=== PATIENT | female | born 1965 | race Caucasian/White ===

== ENCOUNTER 2016-08-24 11:02 | Outpatient (CLI) | payer MEDICAID | END 2016-08-24 11:03 | disposition home or self-care (01) | DX: L40.9 Psoriasis, unspecified (principal); I10 Essential (primary) hypertension; E66.01 Morbid (severe) obesity due to excess calories ==

== ENCOUNTER 2016-10-20 12:04 | Outpatient (CLI) | payer MEDICAID ==
--- NOTE | 2016-10-21 07:34 | XRAY Report ---
AP PELVIS: 10/20/2016 CLINICAL HISTORY: Osteoarthritis. FINDINGS: SI joints are normal. A small spur is seen emanating from the lateral aspect of the left acetabulum. Mild narrowing of the lateral aspect of the left hip joint. Right hip demonstrates prominent spur extending from the lateral aspect of the right acetabulum. A m oderate degree of narrowing of the lateral aspect of the right hip joint. There is calcification or ossification adjacent to the superolateral aspect of the right greater trochanter. This may represen t calcification or ossification at the tendinous insertion site. A similar finding is noted along th e left greater trochanter. Secondary possibility for this finding is a bursitis or calcific tendinit is. IMPRESSION: 1. MINIMAL OSTEOARTHRITIS OF THE LEFT HIP PRIMARILY IN LATERAL SUPERIOR ASPECT OF THE HIP. 2. OSTEOARTHRITIS IS NOTED IN THE RIGHT HIP PRIMARILY IN THE LATERAL SUPERIOR ASPECT OF THE HIP. 3. OSSIFICATIONS ARE DEVELOPING AT THE TENDINOUS INSERTION SITES ALONG EACH GREATER TROCHANTER. THI S MOST LIKELY IS A NORMAL DEVELOPMENTAL VARIATION. JOB #: [id number] EXT JOB #:[id number]
--- NOTE | 2016-10-21 08:01 | XRAY Report ---
THREE-VIEW LUMBAR SPINE: 10/20/2016 CLINICAL HISTORY: Osteoarthritis. FINDINGS: Five non-rib bearing lumbar-type vertebrae are noted. Spurring is detected in the lumbar spine with bridging osteophytes at L2-3 and L3-4. Minimal posterior disk space narrowing is noted at L2-3 and L4-5. Minimal spondylolisthesis is noted at L4-5 amounting to 2 mm. This probably is a re sult of osteoarthritis of the facet joints. Mild posterior disk space narrowing is seen at L5-S1. SI joints show mild narrowing. IMPRESSION: MILD OSTEOARTHRITIS OF THE LUMBAR SPINE. JOB #: [id number] EXT JOB #:[id number]
== END 2016-10-20 12:05 | disposition home or self-care (01) ==
LOC: DI.N 12:04
PROVIDERS: ATTEND Physician Assistant
DX: M16.0 Bilateral primary osteoarthritis of hip (principal); M47.896 Other spondylosis, lumbar region; M43.16 Spondylolisthesis, lumbar region
CPT/HCPCS: 72100; 72170

== ENCOUNTER 2016-12-05 10:11 | Outpatient (CLI) | payer MEDICAID ==
--- NOTE | 2016-12-07 08:05 | Mammography Report ---
DIGITAL SCREENING MAMMOGRAM: 12/05/2016 CLINICAL INDICATION: A 51-year-old for new baseline. TECHNIQUE: Routine CC and MLO projections were obtained of the breasts. FINDINGS: The breasts demonstrate scattered fibroglandular densities bilaterally. No suspicious mas ses, clustered microcalcifications, or regions of architectural distortion are identified. IMPRESSION: NEGATIVE EXAMINATION. RECOMMENDATION: Routine annual screening unless otherwise clinically indicated. BIRADS CATEGORY 1 - NEGATIVE. STANDARD QUALIFYING STATEMENTS 1. This examination was reviewed with the aid of Computer-Aided Detection (CAD). 2. A negative or benign imaging report should not delay biopsy if clinically suspicious findings are present. Consider surgical consultation if warranted. More than 5% of cancers are not identified by i maging. 3. Dense breasts may obscure an underlying neoplasm. JOB #: [id number] EXT JOB #:[id number]
== END 2016-12-05 10:12 | disposition home or self-care (01) ==
LOC: DI.N 10:11
PROVIDERS: ATTEND Nurse Practitioner
DX: Z12.39 Encounter for other screening for malignant neoplasm of breast (principal)
CPT/HCPCS: 77067

== ENCOUNTER 2017-01-16 20:29 | Emergency (ER) | payer MEDICAID ==
--- NOTE | 2017-01-16 21:33 | XRAY Preliminary Report ---
Exam: XR Hand 3 View LT IMPRESSION: 1. No acute bony abnormality. 2. Osteoarthritis. [facility] SITE ID: [id number]
--- NOTE | 2017-01-16 21:36 | XRAY Report ---
EXAM: LEFT HAND RADIOGRAPHY EXAM DATE: 01/16/2017 09:09 PM. CLINICAL HISTORY: FALL. LEFT HAND PAIN/TENDERNESS. COMPARISON: None. TECHNIQUE: 3 views. FINDINGS: Bones: Normal. No fractures or bone lesions. Joints: Spurring of IP joints and first carpometacarpal joint. No subluxations. Soft Tissues: Normal. No soft tissue swelling. IMPRESSION: 1. No acute bony abnormality. 2. Osteoarthritis. [facility] Referring Provider Line: [phone] SITE ID: [id number]
--- NOTE | 2017-01-16 23:01 | ED Physician Documentation ---
PD HPI UPPER EXT INJURY - Stated complaint Stated Complaint: L HAND INJURY - Chief complaint Chief Complaint: General - History obtained from History obtained from: Patient - History of Present Illness Location: Left, Hand Type of injury: Fall (trip) Where injury occurred: Street Timing - onset: Today Timing - duration: Days (1) Timing - details: Gradual onset Pain level max: 6 Pain level now: 5 Improved by: Rest, Ice, Immobilization Worsened by: Moving, Palpating Associated symptoms: Swelling. No: Weakness, Numbness, Tingling, Discolored Contributing factors: No: Anticoagulated, Prior ortho surgery Similar symptoms before: Has not had sx before Recently seen: Not recently seen Review of Systems Musculoskeletal: denies: Neck pain, Back pain Neurologic: denies: Focal weakness, Numbness, Headache PD PAST MEDICAL HISTORY - Past Medical History Past Medical History: No Cardiovascular: None Respiratory: None Neuro: None Endocrine/Autoimmune: None GI: None MILK TESTER: None : None HEENT: None Psych: None Musculoskeletal: None Derm: None - Allergies Allergies/Adverse Reactions: Allergies Allergy/AdvReac Type Severity Reaction Status Date / Time No Known Drug Allergies Allergy Verified 01/16/17 20:44 - Social History Does the pt smoke?: No Smoking Status: Never smoker Does the pt drink ETOH?: No Does the pt have substance abuse?: No - Immunizations Immunizations are current?: Yes - POLST Patient has POLST: No PD ED PE NORMAL - Vitals Vital signs reviewed: Yes - General General: Alert and oriented X 3 - Derm Derm: Warm and dry - Extremities Extremities: Other (L hand - TTP with swelling over the 2nd and 3rd MCP. NVI. No deformity. Otherwise normal examination of the hand and wrist) - Neuro Neuro: Alert and oriented X 3 - Psych Psych: Normal mood, Normal affect Results - Vitals Vitals: Vital Signs - 24 hr 01/16/17 01/16/17 20:40 23:06 Temperature 36.7 C Heart Rate 83 82 Respiratory 17 17 Rate Blood Pressure 153/96 H 152/99 H O2 Saturation 99 98 Oxygen O2 Source Room air - Rads (name of study) L hand xray Radiology: Prelim report reviewed, EMP read contemporaneously, See rad report ( No acute bony abnormality. osteoarthritis) Procedures - Splint (location) L wrist/hand Splint applied by: Physician, Tech Type of splint: Fiberglass, Short arm, Volar cock up Other: Patient tolerated well, No complications, Neurovascular intact PD MEDICAL DECISION MAKING - ED course Complexity details: considered differential, d/w patient ED course: Patient is a 51-year-old female with a hand contusion/sprain. Placed in a volar splint for comfort. Has Motrin and Vicodin at home for pain. We will continue supportive care. No fractures on x-ray. Counseled regarding missed fractures secondary to acute swelling and may need repeat xrays if not improving. Patient counseled regarding signs and symptoms for which I believe and urgent re-evaluation would be necessary. Patient with good understanding of and agreement to plan and is comfortable going home at this time This document was made in part using voice recognition software. While efforts are made to proofread this document, sound alike and grammatical errors may occur. Departure - Departure Disposition: 01 Home, Self Care Clinical Impression: Hand contusion Qualifiers: Encounter type: initial encounter Laterality: left Qualified Code(s): S60.222A - Contusion of left hand, initial encounter Hand sprain Qualifiers: Encounter type: initial encounter Laterality: left Qualified Code(s): S63.92XA - Sprain of unspecified part of left wrist and hand, initial encounter Condition: Good Instructions: ED Sprain Hand Follow-Up: Glen Escobar PA-C [Primary Care Provider] - Comments: Wear the splint for the next 2-3 days, then remove it. Return if you worsen. Discharge Date/Time: 01/16/17 23:17
[2017-01-16 23:07] VITALS: BP 152/99
== END 2017-01-16 23:17 | disposition home or self-care (01) ==
LOC: ED 20:29
DX: S63.92XA Sprain of unspecified part of left wrist and hand, initial encounter (principal); S60.222A Contusion of left hand, initial encounter; W01.0XXA Fall on same level from slipping, tripping and stumbling without subsequent striking against object, initial encounter; Y92.488 Other paved roadways as the place of occurrence of the external cause
CPT/HCPCS: 29125; 99283

== ENCOUNTER 2017-08-29 09:28 | Outpatient (CLI) | payer MEDICAID ==
--- NOTE | 2017-08-29 12:30 | XRAY Report ---
LEFT HAND, THREE VIEWS: 08/29/2017 HISTORY: Left hand pain. COMPARISON: 01/16/2017. FINDINGS: Scattered degenerative changes of the interphalangeal joints of the fingers and thumb, most marked of the finger DIP joints and the thumb interphalangeal joint. Minor first metacarpocarpal degenerative change. No evidence of acute fracture, malalignment, soft tissue swelling, or radiopaque foreign body. IMPRESSION: DEGENERATIVE CHANGE LEFT HAND WITHOUT SUPERIMPOSED ACUTE FINDINGS, SIMILAR IN APPEARANCE TO 01/16/2017. TD: 08/29/2017 12:29 EDDIE
== END 2017-08-29 09:29 | disposition home or self-care (01) ==
LOC: DI.N 09:28
PROVIDERS: ATTEND Family Medicine
DX: M19.042 Primary osteoarthritis, left hand (principal)

== ENCOUNTER 2019-11-26 14:18 | Outpatient (CLI) | payer MEDICAID ==
--- NOTE | 2019-11-26 15:09 | XRAY Report ---
Reason: LEFT ELBOW PAIN Procedure Date: 11/26/2019 Accession Number: [id number] / [id number] Procedure: WCP - Elbow 2 View LT CPT Code: Final Report FULL RESULT: PROCEDURE: Elbow 2 View LT INDICATIONS: LEFT ELBOW PAIN TECHNIQUE: 2 views of the elbow were acquired. COMPARISON: None FINDINGS: There is ulnar humeral joint space narrowing with marginal ossific ptosis along with some subchondral sclerosis. No acute fracture or dislocation. No suspicious lytic or blastic osseous lesion. No elbow joint effusion. No soft tissue swelling. Calcification along the ulnar collateral ligament origin. IMPRESSION: Moderate osteoarthritis of the ulnohumeral joint. Calcification of the ulnar collateral ligament near the origin. Reviewed by: Osmany Damian MD on 11/26/2019 3:08 PM PDT Approved by: Osmany Damian MD on 11/26/2019 3:08 PM PDT Station ID: [id number]
== END 2019-11-26 23:59 | disposition home or self-care (01) ==
LOC: DI.WCP 14:18
PROVIDERS: ATTEND Family Medicine
DX: M19.022 Primary osteoarthritis, left elbow (principal); M24.222 Disorder of ligament, left elbow

== ENCOUNTER 2019-11-27 10:34 | Outpatient (CLI) | payer MEDICAID ==
--- NOTE | 2019-11-28 11:11 | Mammography Report ---
BILATERAL DIGITAL SCREENING MAMMOGRAM 3D/2D: 11/27/2019 Comparison is made to exam dated: 12/05/2016 mammogram - [facility]. There are sca ttered fibroglandular elements in both breasts. No significant masses, calcifications, or other findings are seen in either breast. There has been no significant interval change. IMPRESSION: NEGATIVE There is no mammographic evidence of malignancy. A 1 year screening mammogram is recommended. This exam was interpreted at Station ID: [id number]. NOTE: For mammograms, a report in lay terms will be sent to the patient. Approximately 15% of breast malignancies will not be visualized mammographically. In the management of a palpable breast mass, a negative mammogram must not discourage biopsy of a clinically suspicious lesion. Electronically Signed By: Shana osorio/lilliam:11/28/2019 09:26:56 ACR BI-RADS Category 1: Negative 3341F PARENCHYMAL PATTERN: (A) - The breast(s) demonstrate(s) scattered fibroglandular densities. BI-RADS CATEGORY: (1) - 1 RECOMMENDATION: (ANNUAL) - Recommend routine annual screening mammography. [id number] 1 year screening LATERALITY: (B)
== END 2019-11-27 10:35 | disposition home or self-care (01) ==
LOC: DI 10:34
PROVIDERS: ATTEND Nurse Practitioner Obstetrics & Gynecology
DX: Z12.31 Encounter for screening mammogram for malignant neoplasm of breast (principal)
CPT/HCPCS: 77063; 77067

== ENCOUNTER 2020-07-10 15:45 | Outpatient (CLI) | payer MEDICAID ==
[2020-07-10 22:46] LABS: TRICHOMONAS VAGINALIS DNA NEGATIVE (NEGATIVE)
== END 2020-07-10 23:59 | disposition home or self-care (01) ==
LOC: LAB.R 15:45
PROVIDERS: ATTEND Advanced Practice Midwife
DX: Z11.3 Encounter for screening for infections with a predominantly sexual mode of transmission (principal)
CPT/HCPCS: 87491; 87591; 87661

== ENCOUNTER 2020-07-14 21:31 | Emergency (ER) | payer MEDICAID ==
[2020-07-14] MEDS ORDERED: ASPIRIN CHEW 81 MG TABLET PO STA (21:49)
[2020-07-14 21:57] LABS: BASOPHILS # (AUTO) 0.1 10^3/uL (0.0-0.1); BASOPHILS % (AUTO) 0.8 %; EOSINOPHILS # (AUTO) 0.3 10^3/uL (0.0-0.7); EOSINOPHILS % (AUTO) 3.1 %; HGB - HEMOGLOBIN 15.1 g/dL (12.0-16.0); LYMPHOCYTES # (AUTO) 2.5 10^3/uL (1.5-3.5); LYMPHOCYTES % (AUTO) 30.8 %; MEAN CORPUSCULAR HEMOGLOBIN 28.7 pg (27.0-31.0); MEAN CORPUSCULAR HGB CONC 33.5 g/dL (32.0-36.0); MEAN CORPUSCULAR VOLUME 85.7 fL (81.0-99.0); MEAN PLATELET VOLUME 8.7 fL (7.9-10.8); MONOCYTES # (AUTO) 1.1 10^3/uL (0.0-1.0); MONOCYTES % (AUTO) 13.2 %; NEUTROPHILS # (AUTO) 4.3 10^3/uL (1.5-6.6); PLT - PLATELET COUNT 332 10^3/uL (130-450); RED BLOOD COUNT 5.26 10^6/uL (4.20-5.40); RED CELL DISTRIBUTION WIDTH 13.2 % (12.0-15.0); WHITE BLOOD COUNT 8.3 x10^3/uL (4.8-10.8)
[2020-07-14 22:10] LABS: ALBUMIN 4.5 g/dL (3.2-5.5); ALBUMIN/GLOBULIN RATIO 1.2 (1.0-2.2); BILIRUBIN,TOTAL 0.9 mg/dL (0.2-1.0); CALCIUM 9.7 mg/dL (8.5-10.3); CREATININE 0.6 mg/dL (0.4-1.0); TOTAL PROTEIN 8.3 g/dL (6.7-8.2)
--- NOTE | 2020-07-14 23:58 | ED Physician Documentation ---
PD HPI CHEST PAIN - Stated complaint Stated Complaint: CHEST PX - Chief complaint Chief Complaint: Cardiac - History obtained from History obtained from: Patient - History of Present Illness Timing - onset: Enter time (21:00) Timing - onset during: Light activity Timing - details: Abrupt onset Pain level now: 2 Quality: Pain Location: Other (left axilla) Radiation: Other (no radiation) Improved by: Nothing Worsened by: Other (no exacerbating factors) Associated symptoms: Diaphoresis Similar symptoms before: Has not had sx before Recently seen: Not recently seen - Additional information Additional information: at approximately 9 PM tonight while walking in [facility], patient had rapid onset of diaphoresis associated with left axillary pain. She denies h/o similar symptoms. She has no known CAD nor other cardiac problems. She says she had a normal stress test approximately 5-10 years ago. Her symptoms have resolved by the time of this evaluation Review of Systems Constitutional: reports: Sweats. denies: Fever, Chills, Myalgias Cardiac: reports: Chest pain / pressure (left axillary pain, resolved). denies: Palpitations, Pedal edema, Calf pain Respiratory: reports: Reviewed and negative GI: reports: Reviewed and negative Musculoskeletal: denies: Extremity swelling Neurologic: denies: Generalized weakness, Focal weakness, Numbness, Headache PD PAST MEDICAL HISTORY - Past Medical History Cardiovascular: None Respiratory: None Endocrine/Autoimmune: None GI: None SINK CUTTER: None : None HEENT: None Psych: None Musculoskeletal: None Derm: None - Present Medications Home Medications: Ambulatory Orders Medication Instructions Recorded Confirmed Sertraline HCl 100 mg PO DAILY 07/15/20 07/15/20 Trazodone HCl 100 mg PO HS 07/15/20 07/15/20 Venlafaxine ER [Effexor ER] 150 mg PO DAILY 07/15/20 07/15/20 - Allergies Allergies/Adverse Reactions: Allergies Allergy/AdvReac Type Severity Reaction Status Date / Time No Known Drug Allergies Allergy Verified 07/14/20 21:40 - Social History Does the pt smoke?: No Smoking Status: Never smoker Does the pt drink ETOH?: No Does the pt have substance abuse?: No - Immunizations Immunizations are current?: Yes - POLST Patient has POLST: No PD ED PE NORMAL - Vitals Vital signs reviewed: Yes - General General: Alert and oriented X 3, No acute distress, Well developed/nourished - Neck Neck: Supple, no meningeal sign - Cardiac Cardiac: RRR, No murmur, No gallop, No rub - Respiratory Respiratory: No respiratory distress, Clear bilaterally - Abdomen Abdomen: Soft, Non tender - Derm Derm: Normal color, Warm and dry - Extremities Extremities: No edema Results - Vitals Vitals: Oxygen O2 Source Room air - EKG (time done) No standard instances Rate: Rate (enter#) (94) Rhythm: NSR [place]: Normal Intervals: Normal OR QRS: Normal Ischemia: Normal ST segments - Labs Labs: Laboratory Tests 07/14/20 07/14/20 07/14/20 21:35 21:35 21:35 WBC 8.3 RBC 5.26 Hgb 15.1 Hct 45.1 MCV 85.7 MCH 28.7 MCHC 33.5 RDW 13.2 Plt Count 332 MPV 8.7 Neut # (Auto) 4.3 Lymph # (Auto) 2.5 [place] # (Auto) 1.1 H Eos # (Auto) 0.3 Baso # (Auto) 0.1 Absolute Nucleated RBC 0.00 Nucleated RBC % 0.0 Sodium 139 Potassium 3.8 Chloride 102 Carbon Dioxide 23 Anion Gap 14.0 H BUN 25 H Creatinine 0.6 Estimated GFR (MDRD) 104 Glucose 108 H Calcium 9.7 Total Bilirubin 0.9 AST 37 ALT 43 Alkaline Phosphatase 78 Troponin I High Sens 3.6 Total Protein 8.3 H Albumin 4.5 Globulin 3.8 Albumin/Globulin Ratio 1.2 Lipase 53 H - Rads (name of study) chest xray Radiology: Prelim report reviewed, See rad report PD MEDICAL DECISION MAKING - ED course Complexity details: reviewed results, re-evaluated patient, considered differential, d/w patient ED course: normal EKG and reassuring blood tests including normal high sensitivity troponin. Normal chest xray. asymptomatic during ED stay. results d/w patient, advised to return if worse but to follow up with PMD even if feeling well. Departure - Departure Disposition: 01 Home, Self Care Clinical Impression: Chest pain Qualifiers: Chest pain type: unspecified Qualified Code(s): R07.9 - Chest pain, unspecified Condition: Good Instructions: ED Chest Pain Atypical Unkn Cause Follow-Up: DAVID ROMERO, MSN, [facility] [Primary Care Provider] - (Call to arrange for next available appointment) Discharge Date/Time: 07/15/20 00:49
[2020-07-15 00:14] VITALS: BP 134/88
--- NOTE | 2020-07-15 09:15 | XRAY Report ---
PROCEDURE: Chest 1 View X-Ray INDICATIONS: Chest pain TECHNIQUE: One view of the chest was acquired. COMPARISON: None. FINDINGS: Surgical changes and devices: None. Lungs and pleura: No pleural effusions or pneumothorax. Lungs are clear. Mediastinum: Mediastinal contours appear normal. Heart size is normal. Bones and chest wall: No suspicious bony lesions. Overlying soft tissues appear unremarkable. IMPRESSION: 1. No acute cardiopulmonary disease. Reviewed by: Scott Jewell MD on 07/15/2020 9:13 AM [facility] Approved by: Scott Jewell MD on 07/15/2020 9:13 AM [facility] Station ID: [id number]
== END 2020-07-15 00:49 | disposition home or self-care (01) ==
LOC: ED 21:31
DX: R07.9 Chest pain, unspecified (principal)
CPT/HCPCS: 36415; 71045; 80053; 83690; 84484; 85025; 93005; 99284; A9270

== ENCOUNTER 2020-07-21 16:45 | Outpatient (CLI) | payer MEDICAID | END 2020-07-21 16:46 | disposition home or self-care (01) | LOC: COV 16:45 | PROVIDERS: ATTEND Family Medicine | DX: R50.9 Fever, unspecified (principal); R05 Cough; R06.02 Shortness of breath; M79.10 Myalgia, unspecified site; R53.83 Other fatigue; Z20.822 Contact with and (suspected) exposure to COVID-19 ==

== ENCOUNTER 2020-08-16 14:41 | Outpatient (CLI) | payer MEDICAID ==
--- NOTE | 2020-08-16 17:55 | Ultrasound Report ---
PROCEDURE: Pelvic w/Transvaginal INDICATIONS: POSTMENOPAUSAL BLEEDING TECHNIQUE: Real-time scanning was performed of the pelvic organs, with image documentation. Additional endovagi nal scanning was necessary due to incomplete visualization of the adnexal and endometrial structures by transabdominal scanning. COMPARISON: None. FINDINGS: No pathologic free abdominal or pelvic fluid. Uterus: Uterus is enlarged and measures 12.9 x 6.8 x 9.6 cm. The endometrium measures 6 mm in combin ed thickness. 7.3 x 5.4 x 6.2 cm intramural fibroid is seen in right myometrium. 1.6 x 1.2 x 1.4 cm intramural fibroid is seen in right anterior myometrium. Small nabothian cysts are noted in the endoc ervical canal. No endometrial mass or fluid. Ovaries: Right ovary measures 1.7 x 1.6 x 2.1 cm in size. Left ovary measures 2.1 x 1.5 x 1.5 cm in size. No solid-appearing ovarian lesion is seen. Normal blood flow is seen in bilateral ovaries on co greg Doppler images. IMPRESSION: 1. At least 2 uterine fibroid is seen in the enlarged uterus measures up to 7.3 cm in length. 2. No endometrial mass or fluid. 3. Normal-appearing bilateral ovaries. Reviewed by: Kenyon Buckley MD on 08/16/2020 5:53 PM PDT Approved by: Kenyon Buckley MD on 08/16/2020 5:53 PM PDT Station ID: [id number]
== END 2020-08-16 14:42 | disposition home or self-care (01) ==
LOC: DI 14:41
PROVIDERS: ATTEND Advanced Practice Midwife
DX: N95.0 Postmenopausal bleeding (principal); D25.1 Intramural leiomyoma of uterus

== ENCOUNTER 2020-10-20 08:00 | Outpatient (CLI) | payer MEDICAID ==
[2020-10-20 17:49] LABS: ESTIMATED AVERAGE GLUCOSE 111 mg/dL (70-100); HEMOGLOBIN A1c% 5.5 % (4.27-6.07)
[2020-10-20 18:13] LABS: CHOL/HDL RATIO 5.5 (<4.4); CHOLESTEROL 295 mg/dL; HDL CHOLESTEROL 54 mg/dL; LDL CHOLESTEROL,CALCULATED 168 mg/dL; LDL/HDL RATIO 3.1 (<4.4); TRIGLYCERIDES 365 mg/dL; VLDL CHOLESTEROL 73 mg/dL
[2020-10-20 18:24] LABS: THYROID STIMULATING HORMONE 1.07 uIU/mL (0.34-5.60)
== END 2020-10-20 23:59 | disposition home or self-care (01) ==
LOC: LAB.WCP 08:00
PROVIDERS: ATTEND Nurse Practitioner Family
DX: E78.5 Hyperlipidemia, unspecified (principal); E66.01 Morbid (severe) obesity due to excess calories; I10 Essential (primary) hypertension
CPT/HCPCS: 36415; 80061; 83036; 83721; 84443

== ENCOUNTER 2020-10-27 11:40 | Outpatient (CLI) | payer MEDICAID ==
[2020-10-27 12:30] LABS: BASOPHILS # (AUTO) 0.1 10^3/uL (0.0-0.1); BASOPHILS % (AUTO) 0.9 %; EOSINOPHILS # (AUTO) 0.3 10^3/uL (0.0-0.7); EOSINOPHILS % (AUTO) 5.3 %; HCT - HEMATOCRIT 41.7 % (37.0-47.0); LYMPHOCYTES # (AUTO) 1.4 10^3/uL (1.5-3.5); LYMPHOCYTES % (AUTO) 27.2 %; MEAN CORPUSCULAR HEMOGLOBIN 28.6 pg (27.0-31.0); MEAN CORPUSCULAR HGB CONC 33.6 g/dL (32.0-36.0); MEAN CORPUSCULAR VOLUME 85.1 fL (81.0-99.0); MEAN PLATELET VOLUME 8.6 fL (7.9-10.8); MONOCYTES # (AUTO) 0.5 10^3/uL (0.0-1.0); MONOCYTES % (AUTO) 10.2 %; NEUTROPHILS % (AUTO) 56.2 %; PLT - PLATELET COUNT 296 10^3/uL (130-450); RED CELL DISTRIBUTION WIDTH 12.4 % (12.0-15.0); WHITE BLOOD COUNT 5.3 x10^3/uL (4.8-10.8)
[2020-10-27 12:48] LABS: ALBUMIN 4.3 g/dL (3.2-5.5); ALBUMIN/GLOBULIN RATIO 1.3 (1.0-2.2); BILIRUBIN,TOTAL 0.6 mg/dL (0.2-1.0); CALCIUM 9.5 mg/dL (8.5-10.3); CREATININE 0.5 mg/dL (0.4-1.0); POTASSIUM 4.3 mmol/L (3.5-5.0); TOTAL PROTEIN 7.5 g/dL (6.7-8.2)
== END 2020-10-27 11:41 | disposition home or self-care (01) ==
LOC: LAB 11:40
PROVIDERS: ATTEND Obstetrics & Gynecology
DX: Z01.812 Encounter for preprocedural laboratory examination (principal); N84.0 Polyp of corpus uteri; N95.0 Postmenopausal bleeding; Z20.822 Contact with and (suspected) exposure to COVID-19
CPT/HCPCS: 36415; 80053; 85025; 86850; 86900; 86901

== ENCOUNTER 2020-10-29 08:42 | Day surgery (SDC) | payer MEDICAID ==
[~2020-10-29 08:42] MED LIST: ACETAMINOPHEN 1,000 MG/100 ML 100 ML IV ONE; CELECOXIB 100 MG CAPSULE PO ONE; GABAPENTIN 400 MG CAPSULE ONE; ceFAZolin 2 GM/50 ML 2 GM/50 ML BAG IV ONE
[2020-10-29] MEDS ORDERED: LACTATED RINGERS 1,000 ML IV ONE ×2 (09:23→11:47)
[2020-10-29] MEDS ORDERED: BUPIVACAINE 0.5%-EPI 1:200000 PF 30 ML VIAL ONE (10:08)
--- NOTE | 2020-10-29 10:27 | ANESTHESIA ---
Pre-Anesthesia VS, & Labs - Diagnosis post menopausal bleeding - Procedure hysteroscopy, D and C Vital Signs: Temp Pulse Resp BP Pulse Ox 36.1 C L 85 18 158/97 H 95 10/29/20 09:04 10/29/20 09:04 10/29/20 09:04 10/29/20 09:04 10/29/20 09:04 Height: 5 ft 6 in Weight (kg): 115 kg Body Mass Index: 40.9 BMI Classification: Morbidly Obese - NPO >8 hours - Is Patient ?: No - Lab Results Current Lab Results: Laboratory Tests 10/29/20 09:18: POC Whole Bld Glucose 116 H Home Medications and Allergies Home Medications: Ambulatory Orders Meloxicam [Mobic] 7.5 mg PO DAILY 10/27/20 lisinopriL [Zestril] 5 mg PO DAILY 10/27/20 Sertraline HCl 100 mg PO DAILY 07/15/20 Trazodone HCl 100 mg PO HS 07/15/20 Meloxicam [Mobic] 7.5 mg PO DAILY 10/27/20 lisinopriL [Zestril] 5 mg PO DAILY 10/27/20 Allergies/Adverse Reactions: Allergies Allergy/AdvReac Type Severity Reaction Status Date / Time No Known Drug Allergies Allergy Verified 07/14/20 21:40 Anes History & Medical History - Anesthetic History Anesthesia Complications: reports: No previous complications - Medical History Cardiovascular: reports: Hypertension, High cholesterol Pulmonary: reports: None Gastrointestinal: reports: None Urinary: reports: None Neuro: reports: None Musculoskeletal: reports: Osteoarthritis, Chronic back pain Endocrine/Autoimmune: reports: None Blood Disorders: reports: None Skin: reports: None Smoking Status: Never smoker History of Cancer?: No - Surgical History General: reports: Appendectomy Gynecologic: reports: Dilation and currettage Exam General: Alert Dental: WNL, Dentures full Upper Mouth Opening: Greater than 4 Fingerbreadths Neck Mobility: Normal Mallampati classification: II Respiratory: Lungs clear Cardiovascular: Regular rate Plan Anesthesia Type: General Consent for Procedure(s) Verified and Reviewed: Yes Code Status: Attempt Resuscitation ASA classification: 2-Mild systemic disease Is this case an emergency?: No
[2020-10-29] MEDS ORDERED: ePHEDrine 50 MG/ML VIAL IVP PRN (10:32)
[2020-10-29] MEDS ORDERED: HYDROmorphone 0.5 MG/0.5 ML SYRINGE IVP PRN (10:32)
[2020-10-29] MEDS ORDERED: ATROPINE ABBOJECT 1 MG/10 ML SYRINGE IVP PRN (10:32)
[2020-10-29] MEDS ORDERED: MORPHINE 2 MG/ML CARPUJECT IVP PRN (10:32)
[2020-10-29] MEDS ORDERED: fentaNYL 100 MCG/2 ML VIAL IVP PRN (10:32)
[2020-10-29] MEDS ORDERED: NALOXONE 0.4 MG/ML VIAL IVP PRN (10:32)
[2020-10-29] MEDS ORDERED: ONDANSETRON 4 MG/2 ML VIAL IVP PRN ×2 (10:32→11:54)
[2020-10-29] MEDS ORDERED: METOCLOPRAMIDE 10 MG/2 ML VIAL IVP PRN (10:32)
[2020-10-29] MEDS ORDERED: LIDOCAINE-MPF 2% 5 ML VIAL ONE (10:44)
[2020-10-29] MEDS ORDERED: PROPOFOL 200 MG/20 ML VIAL IVP ONE (10:44)
[2020-10-29] MEDS ORDERED: MIDAZOLAM 2 MG/2 ML VIAL ONE (10:44)
[2020-10-29] MEDS ORDERED: LACTATED RINGERS 1,000 ML IV SCH (11:00)
[2020-10-29] MEDS ORDERED: BUPIVACAINE 0.5%-EPI 1:200000 PF 30 ML VIAL SUBQ ONE ×2 (11:24)
[2020-10-29] MEDS ORDERED: DEXAMETHASONE 4 MG/ML VIAL ONE (11:37)
[2020-10-29] MEDS ORDERED: ONDANSETRON 4 MG/2 ML VIAL ONE (11:37)
[2020-10-29] MEDS ORDERED: LORazepam 2 MG/ML VIAL IVP PRN (11:54)
[2020-10-29] MEDS ORDERED: oxyCODONE 5 MG TABLET PO PRN (11:54)
--- NOTE | 2020-10-29 11:59 | OPERATIVE REPORT ---
Operative Report - General Procedure Date: 10/29/20 Planned Procedure: Postmenopausal bleeding. Procedure Performed: Hysteroscopy with D&C MyoSure Post Op Diagnosis: Endometrial polyps - Procedure Note Primary Surgeon: Jeovanny Carrion MD Anesthesia Provider: Dean Celeste CRNA Anesthesia Technique: General LMA IV Fluids (mL): 800 Estimated Blood Loss (mL): 10 Urine Output (mL): 20 - Other Other Information/Narrative: Following adequate anesthesia via LMA patient was placed in the dorsolithotomy position in [facility]. A pelvic examination under anesthesia was performed this was unrewarding secondary to abdominal wall thickness. She was then prepped and draped in the usual fashion. A timeout was performed which concerns were addressed. A speculum was placed in the vagina cervix visualized grasped with a single-tooth tenaculum it was then dilated up to 4 mm and then sounded to 11 cm. It was dilated the rest of the way to 7 mm and then a video hysteroscope was introduced. The entire endometrial cavity was visualized there was evidence of some small finding polyps at the opening of the endometrial cavity. The fallopian tubes openings were visualized. A MyoSure lite was then introduced into the uterine cavity and the polyps were removed. The remainder of the endometrial cavity was sampled utilizing the MyoSure. Total estimated fluid deficit was 775 and the procedure was ended. The cervix was released from the single-tooth tenaculum there was some bleeding coming from the cervical canal which decreased with time. Patient tolerated procedure well and was taken to recovery in stable condition.Sponge and needle count was correct
--- NOTE | 2020-10-29 12:45 | ANESTHESIA POST OP EVALUATION ---
Anesthesia Post Eval - Post Anesthesia Eval Vitals: Last Vital Signs Temp 37.1 C 10/29/20 12:25 Pulse 76 10/29/20 12:25 Resp 16 10/29/20 12:25 BP 131/83 H 10/29/20 12:25 Pulse Ox 95 10/29/20 12:25 CV Function Including HR & BP: Stable Pain Control: Satisfactory Nausea & Vomiting: Negative Mental Status: Baseline Respiratory Status: Airway Patent Hydration Status: Satisfactory Anesthesia Complications: None
[2020-10-29 13:02] VITALS: BP 114/81
== END 2020-10-29 08:43 | disposition home or self-care (01) ==
LOC: SDS 08:42
PROVIDERS: ATTEND Obstetrics & Gynecology
PROC: 0UDB8ZX Extraction of Endometrium, Via Natural or Artificial Opening Endoscopic, Diagnostic (ICD-10-PCS; 2020-10-29)
PROC: 0UB98ZZ Excision of Uterus, Via Natural or Artificial Opening Endoscopic (ICD-10-PCS; principal; 2020-10-29 10:00)
DX: N84.0 Polyp of corpus uteri (principal); N95.0 Postmenopausal bleeding; E66.01 Morbid (severe) obesity due to excess calories; Z68.41 Body mass index [BMI] 40.0-44.9, adult
CPT/HCPCS: 58558; A9270; J0131; J0690; J7120

== ENCOUNTER 2021-08-20 10:15 | Outpatient (CLI) | payer MEDICAID ==
--- NOTE | 2021-08-20 14:18 | XRAY Report ---
PROCEDURE: Shoulder 3 View RT INDICATIONS: RIGHT SHOULDER PAIN TECHNIQUE: 4 views of the shoulder were acquired. COMPARISON: None. FINDINGS: Bones: No acute fractures or dislocations. No suspicious bony lesions. Visualized ribs appear inta ct. There are severe hypertrophic osteophytic changes of the right acromioclavicular joint with unde rsurface irregularity. There is minimal joint space loss of the subacromial space. No significant cep halad migration of the humeral head. There are also moderate degenerative changes of the right glenoh umeral joint. Soft tissues: No suspicious soft tissue calcifications. Visualized portions of the lungs are clear. IMPRESSION: 1. Right shoulder without acute fracture or dislocation. 2. Severe hypertrophic osteoarthritic changes of the right acromioclavicular joint with minimal under surface irregularity and minimal narrowing of the subacromial space. 3. Moderate degenerative changes of the right glenohumeral joint. Reviewed by: Christian Macias MD on 08/20/2021 2:17 PM PDT Approved by: Christian Macias MD on 08/20/2021 2:17 PM PDT Station ID: [id number]
== END 2021-08-20 23:59 | disposition home or self-care (01) ==
LOC: DI.WOS 10:15
PROVIDERS: ATTEND Physician Assistant
DX: M19.011 Primary osteoarthritis, right shoulder (principal)

== ENCOUNTER 2022-07-01 15:00 | Outpatient (CLI) | payer MEDICAID ==
--- NOTE | 2022-07-04 10:13 | Mammography Report ---
BILATERAL DIGITAL SCREENING MAMMOGRAM 3D/2D: 07/01/2022 CLINICAL: Routine screening. Comparison is made to exams dated: 11/27/2019 mammogram and 12/05/2016 mammogram - [facility]. Both breasts are almost entirely fatty (category a/<25% glandular tissue). No significant masses, calcifications, or other findings are seen in either breast. There has been no significant interval change. IMPRESSION: NEGATIVE There is no mammographic evidence of malignancy. A 1 year screening mammogram is recommended. Based on the Tyrer Cuzick model (a risk assessment model) the patients lifetime risk is 4.3% and her 10 year risk is 1.4%. According to the ACR, ACS, and NCCN guidelines, an annual breast MRI exam chris g with mammogram is recommended if the patients lifetime risk is 20% or greater. This exam was interpreted at Station ID: [id number]. NOTE: For mammograms, a report in lay terms will be sent to the patient. Approximately 15% of breast malignancies will not be visualized mammographically. In the management of a palpable breast mass, a negative mammogram must not discourage biopsy of a clinically suspicious lesion. Electronically Signed By: Christian Macias M.D. aty/penrad:07/01/2022 17:24:56 ACR BI-RADS Category 1: Negative 3341F PARENCHYMAL PATTERN: (F) - The breast(s) demonstrate(s) diffuse fatty replacement. BI-RADS CATEGORY: (1) - 1 RECOMMENDATION: (ANNUAL) - Recommend routine annual screening mammography. [id number] 1 year screening LATERALITY: (B)
== END 2022-07-01 15:01 | disposition home or self-care (01) ==
LOC: DI 15:00
PROVIDERS: ATTEND Nurse Practitioner
DX: Z12.31 Encounter for screening mammogram for malignant neoplasm of breast (principal)

== ENCOUNTER 2022-10-03 09:42 | Outpatient (CLI) | payer MEDICAID ==
[2022-10-03 12:54] LABS: BASOPHILS # (AUTO) 0.1 10^3/uL (0.0-0.1); BASOPHILS % (AUTO) 1.1 %; EOSINOPHILS # (AUTO) 0.3 10^3/uL (0.0-0.7); HCT - HEMATOCRIT 42.5 % (37.0-47.0); HGB - HEMOGLOBIN 13.8 g/dL (12.0-16.0); LYMPHOCYTES # (AUTO) 1.9 10^3/uL (1.5-3.5); LYMPHOCYTES % (AUTO) 33.5 %; MEAN CORPUSCULAR HEMOGLOBIN 27.5 pg (27.0-31.0); MEAN CORPUSCULAR HGB CONC 32.5 g/dL (32.0-36.0); MEAN CORPUSCULAR VOLUME 84.7 fL (81.0-99.0); MEAN PLATELET VOLUME 9.3 fL (7.9-10.8); MONOCYTES # (AUTO) 0.7 10^3/uL (0.0-1.0); NEUTROPHILS # (AUTO) 2.6 10^3/uL (1.5-6.6); NEUTROPHILS % (AUTO) 46.2 %; PLT - PLATELET COUNT 328 10^3/uL (130-450); RED BLOOD COUNT 5.02 10^6/uL (4.20-5.40); RED CELL DISTRIBUTION WIDTH 12.9 % (12.0-15.0); WHITE BLOOD COUNT 5.7 x10^3/uL (4.8-10.8)
[2022-10-03 13:10] LABS: BILIRUBIN,URINE NEGATIVE (NEGATIVE); GLUCOSE, URINE (UA) NEGATIVE (NEGATIVE); KETONES,URINE (UA) NEGATIVE (NEGATIVE); LEUKOCYTE ESTERASE, URINE MODERATE (NEGATIVE); NITRITE,URINE NEGATIVE (NEGATIVE); OCCULT BLOOD,URINE TRACE-INTA (NEGATIVE); PROTEIN,URINE TRACE mg/dL (NEGATIVE); UROBILINOGEN,URINE 0.2 (NORMAL) E.U./dL (NORMAL)
[2022-10-03 13:13] LABS: CLARITY,URINE CLOUDY (CLEAR)
[2022-10-03 13:35] LABS: AMORPHOUS SEDIMENT,UR Moderate /LPF; BACTERIA,URINE Moderate /HPF (None Seen); RBC,URINE 0-5 /HPF (0-5); SQUAMOUS EPITHELIAL CELL,UR FEW Squamous (<= Few); WBC,URINE >25 /HPF (0-5)
[2022-10-03 13:56] LABS: ALBUMIN 4.2 g/dL (3.2-5.5); ALBUMIN/GLOBULIN RATIO 1.2 (1.0-2.2); ALKALINE PHOSPHATASE 72 IU/L (42-121); ALT ALANINE AMINOTRANSFERASE 26 IU/L (10-60); AST ASPARTATE AMINOTRANSFERASE 20 IU/L (10-42); BILIRUBIN,TOTAL 0.7 mg/dL (0.2-1.0); BUN - BLOOD UREA NITROGEN 20 mg/dL (6-20); CALCIUM 9.7 mg/dL (8.5-10.3); CARBON DIOXIDE - CO2 28 mmol/L (21-32); CHLORIDE 103 mmol/L (101-111); CHOL/HDL RATIO 3.9 (<4.4); CHOLESTEROL 191 mg/dL; CREATININE 0.6 mg/dL (0.4-1.0); GFR - MDRD 103 (>89); GLUCOSE 114 mg/dL (70-100); HDL CHOLESTEROL 49 mg/dL; LDL CHOLESTEROL,CALCULATED 105 mg/dL; LDL/HDL RATIO 2.1 (<4.4); POTASSIUM 4.4 mmol/L (3.5-5.0); SODIUM 141 mmol/L (135-145); TOTAL PROTEIN 7.7 g/dL (6.7-8.2); TRIGLYCERIDES 184 mg/dL; VLDL CHOLESTEROL 37 mg/dL
[2022-10-03 14:25] LABS: THYROID STIMULATING HORMONE 2.14 uIU/mL (0.34-5.60)
[2022-10-03 14:32] LABS: ESTIMATED AVERAGE GLUCOSE 123 mg/dL (70-100); HEMOGLOBIN A1c% 5.9 % (4.27-6.07)
== END 2022-10-03 09:43 | disposition home or self-care (01) ==
LOC: LAB.N 09:42
PROVIDERS: ATTEND Nurse Practitioner
DX: I10 Essential (primary) hypertension (principal); E78.5 Hyperlipidemia, unspecified; R73.01 Impaired fasting glucose; R53.83 Other fatigue
CPT/HCPCS: 36415; 80050; 80061; 81001; 81003; 83036; 83721

== ENCOUNTER 2022-12-13 09:02 | Day surgery (SDC) | payer MEDICAID ==
[2022-12-13] MEDS ORDERED: LACTATED RINGERS 1,000 ML IV ONE (09:23)
[2022-12-13] MEDS ORDERED: PROPOFOL 500 MG/50 ML 500 MG/50 ML VIAL ONE (09:41)
--- NOTE | 2022-12-13 09:44 | ANESTHESIA ---
Pre-Anesthesia VS, & Labs - Diagnosis screening - Procedure colonoscopy Vital Signs: Temp Pulse Resp BP Pulse Ox O2 Flow Rate 36.0 C L 87 18 133/89 H 96 12/13/22 09:23 12/13/22 09:23 12/13/22 09:23 12/13/22 09:23 12/13/22 09:23 Height: 5 ft 6 in Weight (kg): 104 kg Body Mass Index: 37.0 BMI Classification: Obese - NPO >8 hours - Is Patient ?: No - Lab Results Lab results reviewed: Yes Home Medications and Allergies Home Medications: Ambulatory Orders Atorvastatin [Lipitor] 10 mg PO DAILY 12/12/22 Fluticasone [Flonase] 1 sprays VANITA DAILY 12/12/22 Fluticasone/Salmeterol [Advair 100-50 Diskus] 1 each IH DAILY 12/12/22 Gabapentin [Neurontin] 100 mg PO ONCE 12/12/22 Lisinopril [Zestril] 10 mg PO DAILY 12/12/22 buPROPion [Wellbutrin Sr] 150 mg PO BID 12/12/22 Trazodone HCl 100 mg PO HS 07/15/20 Atorvastatin [Lipitor] 10 mg PO DAILY 12/12/22 Fluticasone [Flonase] 1 sprays VANITA DAILY 12/12/22 Fluticasone/Salmeterol [Advair 100-50 Diskus] 1 each IH DAILY 12/12/22 Gabapentin [Neurontin] 100 mg PO ONCE 12/12/22 Lisinopril [Zestril] 10 mg PO DAILY 12/12/22 buPROPion [Wellbutrin Sr] 150 mg PO BID 12/12/22 Allergies/Adverse Reactions: Allergies Allergy/AdvReac Type Severity Reaction Status Date / Time No Known Drug Allergies Allergy Verified 12/13/22 09:27 Anes History & Medical History - Anesthetic History Anesthesia Complications: reports: No previous complications Family history of Anesthesia Complications: Denies Family history of Malignant Hyperthermia: Denies - Medical History Cardiovascular: reports: Hypertension, High cholesterol Pulmonary: reports: Asthma Gastrointestinal: reports: None Urinary: reports: None Neuro: reports: None Musculoskeletal: reports: Osteoarthritis, Chronic back pain Endocrine/Autoimmune: reports: None Blood Disorders: reports: None Skin: reports: None Smoking Status: Never smoker - Surgical History General: reports: Appendectomy Gynecologic: reports: Dilation and currettage Exam General: Alert, Oriented x3, Cooperative Dental: Dentures full Upper Mouth Openin Fingerbreadth Neck Mobility: Normal Mallampati classification: II Thyromental Distance: 4-6 cm Respiratory: Lungs clear Cardiovascular: Regular rate Plan Anesthesia Type: General, MAC Consent for Procedure(s) Verified and Reviewed: Yes Code Status: Attempt Resuscitation ASA classification: 2-Mild systemic disease Is this case an emergency?: No
[2022-12-13] MEDS ORDERED: LACTATED RINGERS 600 ML IV ONE (11:02)
[2022-12-13 11:21] VITALS: BP 122/82
--- NOTE | 2022-12-13 13:00 | ANESTHESIA POST OP EVALUATION ---
Anesthesia Post Eval - Post Anesthesia Eval Vitals: Last Vital Signs Temp 36.2 C L 12/13/22 11:02 Pulse 72 12/13/22 11:17 Resp 14 12/13/22 11:17 BP 122/82 H 12/13/22 11:17 Pulse Ox 97 12/13/22 11:17 O2 Flow Rate CV Function Including HR & BP: Stable Pain Control: Satisfactory Nausea & Vomiting: Negative Mental Status: Baseline Respiratory Status: Airway Patent Hydration Status: Satisfactory Anesthesia Complications: None
== END 2022-12-13 09:03 | disposition home or self-care (01) ==
LOC: SDS 09:02
PROVIDERS: ATTEND Surgery
DX: Z12.11 Encounter for screening for malignant neoplasm of colon (principal); K64.9 Unspecified hemorrhoids; J45.909 Unspecified asthma, uncomplicated; I10 Essential (primary) hypertension; E78.00 Pure hypercholesterolemia, unspecified; E66.9 Obesity, unspecified; Z68.37 Body mass index [BMI] 37.0-37.9, adult
CPT/HCPCS: 45378; J7120